=== PATIENT | male | born 1970 ===

== ENCOUNTER 2024-04-12 13:24 | Outpatient (CLI) | payer BC ==
--- NOTE | 2024-04-12 15:24 | XRAY Report ---
PROCEDURE: Hand 3+V BL INDICATIONS: BILATERAL HAND PAIN TECHNIQUE: 3 views of the hand(s) acquired. COMPARISON: None. FINDINGS: Bones: No fractures or dislocations. No suspicious bony lesions. 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 Mild scattered b ilateral interphalangeal joint space narrowing. Soft tissues: No suspicious soft tissue calcifications or masses. IMPRESSION: No acute bony abnormality Left mild first CMC joint and moderate triscaphe joint osteoarthrosis. Right moderate first CMC joint and mild triscaphe osteoarthrosis. Reviewed by: Sho Schmidt MD, PhD on 04/12/2024 3:23 PM PDT Approved by: Sho Schmidt MD, PhD on 04/12/2024 3:23 PM PDT Station ID: [id number]
== END 2024-04-12 13:25 | disposition home or self-care (01) ==
LOC: DI.S 13:24
PROVIDERS: ATTEND Physician Assistant
DX: M18.0 Bilateral primary osteoarthritis of first carpometacarpal joints (principal); M19.032 Primary osteoarthritis, left wrist; M19.031 Primary osteoarthritis, right wrist

== ENCOUNTER 2024-05-14 08:49 | Outpatient (CLI) | payer BC ==
--- NOTE | 2024-05-14 19:46 | CT Report ---
PROCEDURE: CT heart coronary calcium scoring without contrast TECHNIQUE: MDCT non-contrast cardiac gated images were obtained from the lena through the inferior margin of the heart. Calcium score was obtained by post-processing with external software. Automated exposure control was used to reduce patient radiation dose. INDICATION: CAD screening, low or intermediate risk COMPARISON: None. FINDINGS: Image quality: Excellent Agatston method: Total calcium score: 0 L main: 0 LAD: 0 LCX: 0 RCA: 0 Heart findings: Mitral annular calcifications: No significant calcifications. Aortic valve: No significant valvular calcifications. Chambers: No significant enlargement on this non-dynamic study. Pericardium: No effusion. Other findings (note the chest is incompletely imaged on this limited non-contrast study): Lungs and pleura: No pleural effusion. No actionable lung nodules. Mediastinum: No pathologic lymphadenopathy. Upper abdomen: Partially seen, unremarkable. Bones: No acute or suspicious abnormality. IMPRESSION: No coronary artery calcification. Incidentals: None significant. Coronary artery calcium scores have been identified as an independent risk factor for future acute co ronary syndromes and correlate with the quantity of coronary atherosclerotic plaque. However, they do not correlate directly with the degree of stenosis. A low score does not exclude a significant coron lara artery stenosis. Risk of future coronary events should be assessed with individual patient risk factors and medical hi story. Consider correlation with risk percentiles using the CORDOBA (Multi-Ethnic Study of Atheroscleros is) calculator. CAC-DRS Categories: A0: 0, very low risk, consider repeat coronary calcium study every 3-7 years for surveillance. A1: 1-99, mildly increased risk, consider moderate-intensity statin A2: 100-299: moderately increased risk, consider moderate to high-intensity statin + ASA 81mg A3: >300: moderately to severely increased risk, consider high-intensity statin + ASA 81mg Reviewed by: Bjorn Gray MD on 05/14/2024 6:44 PM AKDT Approved by: Bjorn Gray MD on 05/14/2024 6:44 PM AKDT Station ID: [id number]
== END 2024-05-14 08:50 | disposition home or self-care (01) ==
LOC: DI 08:49
PROVIDERS: ATTEND Physician Assistant
DX: E78.00 Pure hypercholesterolemia, unspecified (principal)